=== PATIENT | male | born 1995 | race Caucasian/White ===

== ENCOUNTER 2024-12-10 10:53 | Emergency (ER) | payer SELFPAY ==
[2024-12-10 11:13] VITALS: BP 145/92
[2024-12-10] MEDS: MOTRIN 600 MG PO (14:18)
[2024-12-10] MEDS: TYLENOL 1000 MG PO (14:19)
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
== END 2024-12-10 16:53 | disposition home or self-care (01) ==
LOC: EMR 10:53
PROVIDERS: EMERGENCY PHYSICIAN Emergency Medicine
DX: S82.141A Displaced bicondylar fracture of right tibia, initial encounter for closed fracture (principal); M54.2 Cervicalgia; V89.2XXA Person injured in unspecified motor-vehicle accident, traffic, initial encounter
CPT/HCPCS: 29505; 99284; 72125; 73564; 73700